=== PATIENT | female | born 1935 | race Caucasian/White ===

== ENCOUNTER 2016-08-05 19:28 | Emergency (ER) | payer MEDICARE ==
[~2016-08-05] VITALS: Ht 170.2 cm; Wt 65.0 kg
[2016-08-05 19:51] VITALS: BP 162/89; PULSE 48; RESP 18; O2SAT 99
[2016-08-05 20:06] LABS: BASOPHILS % (AUTO) 0.9 % (0-3); EOSINOPHILS % (AUTO) 2.9 % (0-5); MONOCYTES % (AUTO) 9.7 % (4-12); Mean Corpuscular Hemoglobin 31.9 pg (27.0-35.0); Mean Corpuscular Volume 93.5 fL (81-100); NEUTROPHILS % (AUTO) 40.7 % (40-74); Platelet Count 169 bil/L (150-400)
--- NOTE | 2016-08-05 20:19 | DRSVH ---
PROCEDURE: X-RAY CHEST ONE VIEW, PORTABLE ([id number]) INDICATIONS: Chest pain TECHNIQUE: One view of the chest was acquired. COMPARISON: [facility], , CHEST 2VW, 05/31/2014, 14:27. FINDINGS: Surgical changes and devices: None. Lungs and pleura: No pleural effusions or pneumothorax. There is hyperinflation of the lungs with f lattening of the hemidiaphragms compatible with COPD. No acute consolidation. Mediastinum: There is a large hernia redemonstrated. Heart size is normal. Bones and chest wall: No suspicious bony lesions. Overlying soft tissues appear unremarkable. IMPRESSION: 1. Findings compatible with COPD redemonstrated without acute consolidation. 2. Large hiatal hernia. Dictated by: Cristobal Morrison M.D. on 08/05/2016 at 20:16 Approved by: Cristobal Morrison M.D. on 08/05/2016 at 20:17
[2016-08-05 20:29] LABS: TROPONIN T < 0.010 ug/L (0.0-0.011)
[2016-08-05 20:36] VITALS: BP 169/82; PULSE 52; RESP 16; O2SAT 97
--- NOTE | 2016-08-05 21:16 | ED.REPORT ---
HPI-Syncope Date of Service Aug 05, 2016 ED Provider: Paolo Cleveland MD A 80 year old female with history of HTN and hodgkin's lymphoma presents to the ED via EMS complaining of syncope that occurred earlier this evening while the patient was attending a 2.5 hour meeting at their restorationism. Per EMS, patient's heart rate was in the 40's-50's on scene, and she was clammy. The patient reports that she was sitting down and started feeling very warm and began fanning herself with a piece of paper. This heat sensation seemed to last for 3 -4 minutes. Next thing the patient knew, she was lying on the floor but was not in any discomfort. Per friend, the patient slumped in her chair when she lost consciousness and another woman assisted her to the floor where the patient was laid down gently. Per friend, the patient was very clammy at the time. Per friend, the patient came back to consciousness within less than a minute, the patient talking and being coherent. It took about 1-2 minutes for the patient to fully come around to normal, the patient not knowing why they were on the floor. Per friend, the patient did not complain about anything after waking up, but did say that she thought she may have lost consciousness because of her heat sensation. The patient denies experiencing any any chest pain or heart palpitations, and does not remember if she felt dizzy or lightheaded at the time of syncope. During the day, the patient did feel tired but did not feel like anything else was wrong.The patient reports no dizziness when getting up to use the ED bathroom. The patient did eat dinner before going to her meeting. The patient does report a syncopal episode occurring when she was in the 7th grade. She takes carvedilol, her doses being increased recently because of her blood pressure. The patient reports baseline high blood pressure. The patient has recently been visiting her PCP, , for pain in her right leg onset 2-[address] Purdy suggested that she receive cardiovascular testing and start taking water pills. While in the ED, she reports that she has noticed that her right leg has started to hurt, but it did not hurt earlier today. She has not noticed any recent swelling in her right leg. The patient is in her 8th year of treatment for hodgkin's lymphoma and she is in remission. She denies any history of heart conditions and denies any history of appendectomy, cholecystectomy, or any other major surgeries. The patient does not smoke or drink. Nursing Notes Stated Complaint: SYNCOPE Chief Complaint: General Complaint Nursing Notes Reviewed: Yes ([employer] not reconciled) Allergies: Coded Allergies: No Known Allergies (Unverified , 08/05/16) Scheduled Lisinopril (Lisinopril) 10 Mg Tablet 10 MG PO DAILY General Time Seen by Provider: 20:52 Chief Complaint Lost consciousness Hx Obtained From: Patient (patient and friend), EMS Arrived By: Ambulance Onset Occurred: 1 - 4 hours ago Symptom Duration: 1 - 15 minutes Severity: Current: Pain level 4 out of 10 Recent Healthcare: No recent doctor visit Similar Sx Previous: No Past Medical History Past Medical History Notes: Dr. Purdy is her PCP. Echocardiogram November 2015-left ventricular wall thickness is mildly increased, EF of 60-65%, wall motion is normal, there is mild to moderate mitral regurg, moderate tricuspid regurg but no other significant valvular disease. 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 Smoking History Never Smoker Social History Alcohol Use: Denies alcohol use Other Social History: Good social support Ambulatory Status Independent Review of Systems Review of Systems Note: Warm sensation before syncopal episode. Cardiovascular: Denies: Chest pain, Palpitations Musculoskeletal: Reports: Extremity pain (right leg) Neurologic: Reports: Syncope, Denies: Dizziness Complete sys rev & neg: except as marked. Physical Exam Initial Vital Signs Vital Signs (First) Date Time Temp Pulse Resp B/P Pulse Ox O2 Delivery O2 Flow Rate FiO2 08/05/16 19:51 36.4 48 18 162/89 99 Room Air Initial VS: Reviewed, Vital signs normal (mild HTN) General/Constitutional: Awake, Alert Respiratory / Chest: Atraumatic, Breath sounds NL, Breath sounds = bilat, No respiratory distress, No rales, No rhonchi, No wheezing Cardiovascular: Heart rate NL, Regular rhythm, Heart sounds NL, No gallop, No murmurs, No rubs Lower Extremity / Pelvis / MS: No swelling, No edema Neurologic: Oriented X3, Speech NL Head / Eyes: Atraumatic, Normocephalic, PERRL, EOMI ENT: Atraumatic, Mucous membranes moist Neck: Atraumatic, No swelling Abdomen: No guarding, No rebound Skin: Atraumatic, Color NL, Warm, Dry Upper Extremity / MS: No swelling, No edema Wrist / Hand: No swelling, No edema Ankle / Foot: No swelling, No edema Interpretation & Diagnostics Interpretation & Diagnostics: Ultrasound preliminary tech report-duplex ultrasound right lower extremity negative for DVT Lab Results Interpretation Result Diagram: 08/05/16195608/05/161956 Test 08/05/16 19:57 08/05/16 21:45 White Blood Count 5.9th/mm3 (3.8-10.1) Red Blood Count 3.85mil/mm3 (3.90-5.20) Hemoglobin 12.3g/dL (12.0-15.6) Hematocrit 36.0% (35.0-46.0) Mean Corpuscular Volume 93.5fL (81-100) Mean Corpuscular Hemoglobin 31.9pg (27.0-35.0) Mean Corpuscular Hemoglobin Concent 34.2% (32.0-37.0) Red Cell Distribution Width 13.4% (12.3-15.4) Platelet Count 169bil/L (150-400) Neutrophils (%) (Auto) 40.7% (40-74) Lymphocytes (%) (Auto) 45.6% (14-46) Monocytes (%) (Auto) 9.7% (4-12) Eosinophils (%) (Auto) 2.9% (0-5) Basophils (%) (Auto) 0.9% (0-3) Sodium Level 134mEq/L (134-144) Potassium Level 3.3mEq/L (3.5-5.2) Chloride Level 95mEq/L (97-108) Carbon Dioxide Level 25mmol/L (18-29) Blood Urea Nitrogen 16mg/dL (8-27) Creatinine 0.69mg/dL (0.57-1.00) Estimat Glomerular Filtration Rate 118mL/min (>59) Glucose Level 109mg/dL (60-99) Calcium Level 8.4mg/dL (8.5-10.1) Magnesium Level 2.0mg/dL (1.6-2.6) Total Bilirubin 0.4mg/dL (0.0-1.2) Aspartate Amino Transf (AST/SGOT) 20U/L (0-50) Alanine Aminotransferase (ALT/SGPT) 25U/L (0-32) Alkaline Phosphatase 51U/L (25-165) Troponin T < 0.010ug/L (0.0-0.011) Total Protein 6.4g/dL (6.4-8.4) Albumin 3.7g/dL (3.4-5.0) Hold Urine Received (Received) Lab Results Interpretation: CBC normal CMP trace hypokalemia ECG Interpretation ECG Interpretation: Rate is 52. Sinus bradycardia. First degree heartblock. Intraventricular conduction delay with inferior lateral repolarization changes consistent with hypertension. ECG does not appear changed compared with 07/04/2011. Time: 21:27 Interpreted by: ED physician X-Ray Chest Interpretation Chest Xray Interpretation: IMPRESSION: 1. Findings compatible with COPD redemonstrated without acute consolidation. 2. Large hiatal hernia. Dictated by: Cristobal Morrison M.D. on 08/05/2016 at 20:16 Approved by: Cristobal Morrison M.D. on 08/05/2016 at 20:17 View: Portable, 1 view Re-Eval/Medical Decision Med Decision/Clinical Course This is a 80-year-old female without history of cardiac disease or venous thromboembolism presents with an episode of witnessed syncope. Patient felt warm and the next thing she knows she was out and lowered to the floor. Witnesses say that she was out for less than a minute, and recovered in less than a minute. She had no complaints of chest pain, shortness of breath, diaphoresis. She has otherwise been well although in recent weeks she has had some right lower extremity discomfort-but no swelling. She is no prior history of DVT. Eyes previous history of syncope. Of note she is mildly bradycardic in the department and she does not know her baseline heart rate, but does note that her carvedilol was recently increased in an attempt to manage her hypertension. She reports she takes a diuretic when is having a taken every to 2-3 days, "because it interfered with my blood work". In the department the patient appears well. Heart tones are normal no appreciable murmurs. She has had a relatively recent echocardiogram. EKG reveals no interval change but findings of hypertrophy and strain. Again she was a first-degree block with bradycardia-so I am suspicious that a possible bradycardic event may have occurred, butsays definitive event was captured. Blood work was normal except for borderline hypokalemia. Ultrasound right leg is negative. The patient remained entirely asymptomatic. She is up and about ambulating and appearing well. At this point he definitive or dangerous cause of the syncope has not been identified. I remained concerned regarding the possibility that a bradycardic event may have contributed, but indicated this is the area. I recommended backing off to her previous dose of carvedilol from the recent change, and following up with her primary care physician to discuss her hypertension management. After lengthy discussion if offered that she could initiate 10 mg lisinopril daily in the interim for blood pressure management. Discharged in asymptomatic condition. She is advised to return for new or worsening symptoms occur. Source of Hx: Old records, EMS Re-Evaluation/Progress : Time of Eval: 22:46 Re-Evaluation/Progress Note: Rechecked patient who has passsed their road test. Explained diagnosis and plan for discharge. Differential Diagnosis: Positive: Dysrhythmia (mild bradycardia, chronic first- degree heart block), Medication-induced, Negative: Abdominal aortic aneurysm, Acute coronary syndrome, Alcohol abuse, Anemia, Dehydration, Drug overdose, Hypoglycemia, Myocardial infarction, Myocarditis, Pneumothorax, Prolonged QT syndrome, Pulmonary embolus, Seizure, Sepsis, Subarachnoid hemorrhage, Thoracic aortic dissect, Transient ischemic attack Counseled Regarding: Diagnosis, Lab results, Need for follow-up, When/why to return to ED Discharge & Departure Impression: Primary Impression: Syncope Syncope type: unspecified Qualified Code: R55 - Syncope and collapse Additional Impressions: Bradycardia Hypertension Hypertension type: essential hypertension Hypertension goal: unspecified goal Qualified Code: I10 - Essential (primary) hypertension First degree heart block Disposition: Home Discharge Condition All VS Reviewed: Yes Condition: Improved Additional Instructions: 1. A dangerous cause of the syncope (passing out) was not identified. 2. Your heart rate in the ED was on the low side at 52, so it is possible you may have had a transient heart rate that was lower and contributed to the event. I recommend returning to your original (lower) dose of carvedilol for your blood pressure as it has a side effect of reducing the heart rate. 3. The ultrasound was normal (no blood clot) 4. I recommend taking lisinopril 10mg daily for blood pressure management instead of the carvedilol. Referrals: Steve Purdy MD (PCP) Yanick Attestation Portions of this note were transcribed by Juan Carlos Raines. I, Dr. Cleveland personally performed the history, physical exam and medical decision-making; I reviewed and confirmed the accuracy of the information in the transcribed note. Signed by: Yanick Gregg, 08/05/2016 2318. copies to: Steve Purdy MD, Matthew F MD Aug 05, 2016 21:16 Juan Carlos Raines Aug 05, 2016 21:39
[2016-08-05] MEDS ORDERED: LISI10TA PO (22:49)
[2016-08-05 23:09] VITALS: BP 182/85; PULSE 58; RESP 13; O2SAT 96
--- NOTE | 2016-08-06 08:54 | DRSVH ---
PROCEDURE: US VEINOUS LEG DUPLEX UNILATERAL, RIGHT INDICATIONS: pain ro DVT TECHNIQUE: Real-time imaging, as well as color and pulse Doppler interrogation, were performed of the lower extr emity deep veins from the inguinal ligament to the popliteal fossa. COMPARISON: None. FINDINGS: The deep veins are normally compressible, and free of intraluminal thrombus. Color and pu lse Doppler demonstrate normal phasic intraluminal flow. There is normal augmentation response to di stal compression maneuver. IMPRESSION: No deep venous thrombosis identified within the right lower extremity. Note: These findings are concordant with the preliminary interpretation. Dictated by: Ozzy Brewer [facility] Interpreted: Catie Bennett MD on 08/06/2016 at 8:54 Transcribed by: ALIVIA on 08/06/2016 at 8:54 Approved by: Catie Bennett MD, PhD on 08/06/2016 at 16:41
== END 2016-08-05 23:13 | disposition home or self-care (01) ==
LOC: EDBD 19:28 → SED 19:28
DX: R55 Syncope and collapse (principal); R00.1 Bradycardia, unspecified; I44.0 Atrioventricular block, first degree; I10 Essential (primary) hypertension